=== PATIENT | female | born 1965 | race Two or more races ===

== ENCOUNTER → 2024-08-02 | Emergency (ER) | payer OTHER ==
[~2024-08-02] VITALS: Ht 165.1 cm; Wt 59.0 kg
[~2024-08-02] MED LIST: KETOROLAC TROMETHAMINE 60 MG VIAL IM ONE; KETOROLAC TROMETHAMINE 60 MG VIAL IM STA; LISINOPRIL10 MG PO; MECLIZINE HCL 25 MG TABLET PO ONE; MECLIZINE HCL 25 MG TABLET PO STA; METFORMIN HCL500 M3; ROSUVASTATIN CA10 MG PO
[2024-08-02 11:14] LABS: HEMATOCRIT 36.1 % (36.0-45.00); HEMOGLOBIN 12.5 g/dL (12.0-15.00); MEAN CELL VOLUME 85.3 fL (80.00-100.00); MEAN CORPUSCULAR HEMOGLOBIN 29.5 pg (27.00-32.0); MEAN CORPUSCULAR HGB CONC 34.6 g/dl (32.0-36.0); RED BLOOD COUNT 4.23 M/uL (4.00-6.00); RED CELL DISTRIBUTION WIDTH 12.5 % (11.5-14.5)
[2024-08-02 11:16] LABS: PLATELET COUNT 125 K/uL (150-450)
[2024-08-02 12:06] LABS: COVID-19 AG NEGATIVE (NEGATIVE)
[2024-08-02 12:07] LABS: INFLUENZA A AG NEGATIVE (NEGATIVE)
== END | disposition home or self-care (01) ==
LOC: ER 09:25
DX: J06.9 Acute upper respiratory infection, unspecified (principal); H81.10 Benign paroxysmal vertigo, unspecified ear; Z20.822 Contact with and (suspected) exposure to COVID-19